=== PATIENT | male | born 1965 | race Caucasian/White ===

== ENCOUNTER 2023-07-07 07:42 | Day surgery (SDC) | payer BC, SELFPAY ==
--- NOTE | 2023-07-03 06:49 | EKG12_ITS ---
Test Reason : PRE OP Blood Pressure : / mmHG Vent. Rate : 061 BPM Atrial Rate : 061 BPM P-R Int : 170 ms QRS Dur : 090 ms QT Int : 410 ms P-R-T Axes : 052 -34 052 degrees QTc Int : 412 ms Normal sinus rhythm Left axis deviation Abnormal ECG Confirmed by LADONNA COMBS, WATSON ([id number]), associate entertainment editor JACEY YU ([id number]) on 07/03/2023 11:38:20 AM Referred By: Landen Walter Confirmed By:WATSON DOUGHERTY MD
[2023-07-03 07:03] LABS: Hematocrit 44.9 % (40-54); Hemoglobin 15.1 g/dL (13.0-16.5); Mean Corp Hgb Conc 33.6 g/dL (32-36); Mean Corpuscular Hgb 32.3 pg (27.0-32.0); Mean Corpuscular Volume 96.1 fL (80-94); Mean Platelet Vol. 9.2 fl (6.2-12.0); Platelet Count 228 K/mm3 (150-450); RBC Distribution Width CV 12.3 % (11.6-14.6); RBC Distribution Width SD 43.5 fl (35.1-43.9); Red Blood Count 4.67 M/mm3 (4.6-6.2); White Blood Count 5.3 K/mm3 (4.4-11.0)
[2023-07-03 07:44] LABS: Anion Gap 4 (5-15); BUN 22 mg/dL (7-18); BUN/Creat Ratio 20.6 RATIO (10-20); Calcium,Total 8.8 mg/dL (8.5-10.1); Chloride 109 mmol/L (98-107); Creatinine, Serum 1.07 mg/dL (0.70-1.30); EST Glomerular Filtration Rate 75 mL/min (>60); Est Glom Filt Rate - Afr Amer 91 mL/min (>60); Glucose 100 mg/dL (74-106); Potassium 4.1 mmol/L (3.5-5.1); Sodium Level 141 mmol/L (136-145)
[2023-07-07] VITALS (7 sets, daily range): BP systolic 119–147; BP diastolic 56–88; PULSE 51–75; RESP 16–18; TEMP 36.4–37; O2SAT 95–100; BMI 24.1
[2023-07-07] MEDS: Lactated Ringers 1,000 ML 15 ML IV (08:24)
--- NOTE | 2023-07-07 08:36 | PCM.HP.BLA ---
History and Physical Date of Admission: 07/07/23 isit Reasons: INGUINAL HERNIA Chief Complaint: right inguinal hernia Is patient in pain?: No Allergies No Known Allergies Allergy (Verified 06/23/23 13:20) Medications ascorbate calcium (vitamin C) 500 mg tablet 500 mg PO DAILY 05/30/23 [History Confirmed 06/23/23] cholecalciferol (vitamin D3) 10 mcg (400 unit) capsule 10 mcg PO DAILY 05/30/23 [History Confirmed 06/23/23] krill oil 500 mg capsule mg PO 05/30/23 [History Confirmed 06/23/23] vitamin B complex (B Complex-Vitamin B12 tablet) 1 tab PO DAILY 05/30/23 [History Confirmed 06/23/23] vitamin K2 45 mcg capsule 45 mcg PO DAILY 05/30/23 [History Confirmed 06/23/23] [facility] Medical History Alcohol abuse Amputation finger Hypertension Social History adopted: No household members: none current occupational status: employed current occupation: [employer] [place] pets and animals: Yes (1) pets and animals: dog(s) Smoking Status: Never smoker alcohol intake: former details: 03/11/2018 substance use type: does not use caffeine: Yes (2) Type: coffee what type of physical activity do you participate in: running and aerobics frequency: daily seatbelt use: always do you feel safe at home: Yes HPI HPI HPI: 57-year-old gentleman is being referred by Dr. Shemar Patel for surgical consultation regarding a right inguinal hernia and written copy my surgical consult notes will returned to him. The patient's primary visit to primary care was due to a bulge in the patient's right groin. There has been increasing protrusion. Claims to be an avid sized less with apparently a very aggressive event scheduled for September 2023. He takes vitamins and supplements including Krill oil. No other prescription medications. 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 He does a significant moderate lifting and straining. 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 He also plans a 50 mile appellation walk in early September. He plans for 3-day cycling adventure in later September. He claims that when he really presses on his bicycle pedals that he notices a discomfort in the right groin occasionally similar discomfort on the left. He has had episodes for over a year of bulging in the right groin. More recently there is been episodes where he has had a purposely reduce the bulge. Previously he had noted that it would spontaneously resolve overnight. He has had a remote history of alcohol use to excess. That stopped in 2018. He otherwise states that he enjoys good health ROS General General: No weight change, appetite, fatigue, colon cancer, breast cancer or weakness HEENT HEENT: No difficulty swallowing, eye injury, eye surgery, swollen glands or hoarseness Endo Endocrine: No thyroid disease, diabetes mellitus, thyroid cancer, Hair loss, heat intolerance or cold intolerance Skin Skin: No rash or changing moles Musc Musculoskeletal: No back problems, arthritis, rheumatoid arthritis, gout or joint pain Cardio Cardiovascular: No murmur, pacemaker, heart disease, atrial fibrillation, high blood pressure, heart attack, heart stent, palpitations, shortness of breat with exertion or chest pain Psych Psychiatric: Yes depression; No anxiety or hearing voices Additional Details: situational due to the passing of his danish lira Resp Respiratory: No shortness of breath, No sleep apnea, No cough, No COPD, No asthma, No emphysema and No wheezing Gastro Gastrointestinal: No abdominal pain, No nausea or vomiting, No diarrhea, No constipation, No blood in stool, No acid reflux, No hemorrhoids, No ulcers, No gallbladder problem and No black,tarry stools Dez Hematologic: Yes blood thinners Additional Details: krill oil Neuro Neurologic: No weakness Exam Const General: cooperative, comfortable and no acute distress Nutritional Appearance: average body habitus Orientation: alert and awake [facility] Head: normal to inspection Eyes General: appearance normal, both eyes and all related structures Neck Neck: normal visual inspection Chest Chest palpation & inspection: normal inspection of the chest Resp Effort & Inspection: normal respiratory effort Auscultation: clear to auscultation bilaterally Cardio Rate: regular rate Rhythm: regular rhythm GI Inspection: normal to inspection Palpation: soft and no hepatosplenomegaly Auscultation: normal bowel sounds Other: Bilateral testicles are descended. Left groin seems to be solid intact. I do not detect a distinct weakness. Obvious right inguinal hernia which I believed to be an indirect inguinal hernia. With supine posturing I am able to reduce that. Skin General: no rashes or lesions noted Neuro General: patient alert, patient awake and patient oriented x3 Extrem General: no calf tenderness Psych Appearance: grossly normal Assessment and Plan Assessment and Plan (1) Right inguinal hernia: Status: Acute Plan: Today's office visit was an extensive 50-minute office visit discussing recommendations that I have for him being a laparoscopic right inguinal hernia repair. The patient then made comment about some intermittent discomfort on the left side and so I propose for him that if a left-sided hernia was identified laparoscopically that I would recommend repairing at the same setting and he was in concurrent with that. We extensively discussed technique benefit risk complication alternatives. We extensively discussed the need for postoperative recovery which would exclude hiking and cycling and heavy lifting and straining. Much of the time was spent trying to decide how urgent the repair would be and whether it could be delayed until after September 2023. The patient seemingly has become more symptomatic on the right and he plans on being out in the wild for a 50-hour hiking trip. I cautioned him him that he might get into a situation where medical emergency would not allow for emergency medical care. I suggested to him that he consider scheduling at a time that he felt pertinent though I felt that it would be reasonable to proceed with scheduling him in the near future which could avoid his participation in the events he described. I have made it incredibly clear to the patient that he will mandatory need to allow postoperative recovery time to allow the mesh to settle in place. We might be able to get him back to some type of light duty work at 3 weeks but I would not anticipate cycling for at least 6 weeks. We discussed the diminishing returns of repairs if they recur. We did discuss the recurrence as well as other issues are potential. He is had an extended opportunity ask and have questions answered. We will proceed at his discretion. I appreciate the opportunity of assisting with the surgical care. Copy: Dr. Shemar Walter M.D., F.A.C.S I have examined the patient and the H&P has been reviewed. There are no clinical changes since date of exam. Landen Walter M.D., F.A.C.S.
--- NOTE | 2023-07-07 08:37 | DCINST_ITS ---
Discharge Instructions Procedure General Surgery Diet Discharge Diet: Light diet - advance as tolerated (if you have questions about your diet instructions, please talk to you doctor.) Activity Discharge Activity: May Not Drive (for 3-5 days or while taking narcotic pain medicine.) May shower in (days): 1 Lifting Restrictions: 10 pounds Dressing / Incision Call your doctor if your incision/area has: Continuous Slow Oozing, Sudden Increased Bleeding, Increased Pain/ Swelling, Increased Redness and Foul Smelling Discharge Call your doctor if you observe: Fever of 101 or Higher Suture Line Care: Avoid Pulling/Pushing and Avoid Pinching/Bending Additional Dressing/Incision Instructions:: Change or remove dressing in 4 days. Leave steri-strips in place for 1 week. Follow Up Care Please Follow Up With: Landen Walter MD When: Call [phone] to make an appointment to be seen in about 10 days. Test Results: Test results from this visit will be discussed in further detail at your follow- up appointment, if applicable. Discharge Plan Admission Attending Provider: Landen Walter Primary Care Provider: Shemar Patel Discharge Orders/Prescriptions Prescriptions: No Action ascorbate calcium (vitamin C) 500 mg tablet 500 mg PO DAILY cholecalciferol (vitamin D3) 10 mcg (400 unit) capsule 10 mcg PO DAILY vitamin K2 45 mcg capsule 45 mcg PO DAILY krill oil 500 mg capsule 500 mg PO DAILY vitamin B complex [B Complex-Vitamin B12] Tablet 1 tab PO DAILY Other Ambulatory Orders: 12 Lead EKG (Routine) Location: None Selected Ordered By: Dr. Toy Brito Referrals / Follow Up: Shemar Patel, [Primary Care Provider] - Disposition Disposition (needs filled in before D/C Order can be placed): Home, Self Care
[2023-07-07] MEDS: Cefazolin 2 GM in 0.9% Normal Saline (100mL Bag) 100 ML IV (09:13)
[2023-07-07] MEDS: Bupivacaine Mpf 0.5% 30 ML VIAL (10:24)
--- NOTE | 2023-07-07 10:37 | OP.PCM_ITS ---
Report of Operation Date of Procedure: 07/07/23 Pre-Operative Diagnosis: Indirect right inguinal hernia Post-Operative Diagnosis: Same Surgery/Procedure Performed:: Laparoscopic right inguinal herniorrhaphy with mid weight Bard 3D max anatomical mesh extra-large. Lot [id number], reference [id number], expiry date 05/14/2026 Secure strap Lot [id number], expiry date October 2024 Description of Surgical Findings:: Timeout and informed consent was obtained. 57-year-old gentleman was taken to the op room placed upon table underwent general endotracheal ovation esthesia. Ancef 2 g were given intravenously preoperatively. Abdomen was sterilely preppe d and draped. 0.5% Marcaine was used as a local anesthetic. A total of 30 cc was used. Skin sites were Mell size. A vertical infraumbilical incision was created holding sutures of 0 Vicryl placed there is no inserted saline drop test performed the abdomen was insufflated with CO2 to a pressure of 10 mmHg pressure. 10 mm trocar inserted. 10 mm laparoscope inserted. Under direct visitation the left groin was carefully inspected I did not see any evidence of indirect or direct defect. There was evidence of a small indirect defect on the right. 5 mm trocars were placed on the right and left lower quadrant. A ilioinguinal nerve block was performed with Marcaine on the right. The peritoneum superior lateral to the internal ring was incised and carried medially. Then this was completely dissected free so as to identify the direct indirect and femoral area. Some of this fibroareolar tissue was more adherent and required sharp electrocautery dissection were indicated. However I was able to get good complete exposure to the groin. Because the patient is an active cyclist and with a body weight of 173 pounds and a BMI of [address] a mid weight mesh to allow for hopefully less discomfort and more flexibility particular with his cycling. The extra-large Bard mid weight mesh was placed and carefully positioned so as to cover the direct indirect and femoral areas. I was extraordinarily pleased with the application of the device with very nice positioning. I secured it laterally superiorly and medially with secure strap. Excellent coverage existed. I then proximal to the perineum to itself using secure strap and 1 Hem-o-kesha clip. Sponge and instrument and needle counts were reported to the surgeon to be correct. Was allowed to deflate through an antiviral valve. Trocars were removed. The fascia at the umbilicus approximated interrupted 0 Vicryl [id number] suture. Skin edges approximated opted for Monocryl subdermal stitches. Steri-Strips Telfa OpSite dressings applied. Sponge and instrument and needle counts were reported the surgeon to be correct. Specimens none. Drains none. Blood loss minimal. The patient was taken to the recovery room in satisfactory addition. Landen Walter M.D., F.A.C.S. Surgeon: Landen Walter Type of Anesthesia: General and Local Anesthesiologist: Sal Ramirez
[2023-07-07] MEDS: HYDROcodone Bitartrate/Apap 5/325 Tablet PO (11:44)
== END 2023-07-07 14:19 | disposition home or self-care (01) ==
LOC: SDC 07:44 → AC 07:46
PROVIDERS: Anesthesiology; PCP Family Medicine; Referring Provider Surgery; Visit Provider Surgery
PROC: (CPT 49650; principal; 2023-07-07 09:25)
DX: K40.90 Unilateral inguinal hernia, without obstruction or gangrene, not specified as recurrent (principal)
CPT/HCPCS: 49650; 00840; 36415; 80048; 85027; 93005; J7120; J2405